=== PATIENT | male | born 1950 | race American Indian/Alaskan Native ===

== ENCOUNTER 2016-11-15 17:34 | Emergency (ER) | payer MEDICARE, OTHER ==
[2016-11-15 17:51] VITALS: BP 156/87
[2016-11-15 18:39] LABS: Basophils % (Auto) 0.8 % (0.0-1.8); Eosinophils % (Auto) 5.4 % (0.0-4.3); Hematocrit 44.6 % (35.5-45.6); Hemoglobin 14.7 gm/dl (11.8-15.2); Mean Corpuscular HGB Conc 33 % (32-34); Mean Corpuscular Hemoglobin 30 pg (28-32); Mean Corpuscular Volume 92 fl (84-94); Platelet Count 251 K/mm3 (140-440); Red Blood Count 4.87 M/mm3 (3.65-5.03); Red Cell Distribution Width 13.7 % (13.2-15.2); White Blood Count 9.3 K/mm3 (4.5-11.0)
[2016-11-15 18:51] LABS: Anion Gap 20 mmol/L; BUN/Creatinine Ratio 10.76; Blood Urea Nitrogen 14 mg/dL (9-20); Calcium 9.6 mg/dL (8.4-10.2); Carbon Dioxide 26 mmol/L (22-30); Chloride 102.8 mmol/L (98-107); Glucose 117 mg/dL (75-100); Potassium 4.2 mmol/L (3.6-5.0); Sodium 145 mmol/L (137-145)
--- NOTE | 2016-11-16 07:45 | ED Elopement Review ---
ED Pt Elopement review - Results review Lab results: Laboratory Tests 11/15/16 11/15/16 11/15/16 18:18 18:18 20:14 WBC 9.3 RBC 4.87 Hgb 14.7 Hct 44.6 MCV 92 MCH 30 MCHC 33 RDW 13.7 Plt Count 251 Lymph % (Auto) 28.5 [place] % (Auto) 8.0 H Eos % (Auto) 5.4 H Baso % (Auto) 0.8 Lymph # 2.6 [place] # 0.7 Eos # 0.5 H Baso # 0.1 Seg Neutrophils % 57.3 Seg Neutrophils # 5.3 Sodium 145 Potassium 4.2 Chloride 102.8 Carbon Dioxide 26 Anion Gap 20 BUN 14 Creatinine 1.3 Estimated GFR > 60 BUN/Creatinine Ratio 10.76 Glucose 117 H Calcium 9.6 Troponin T < 0.010 < 0.010 Triglycerides Cholesterol LDL Cholesterol Direct HDL Cholesterol Cholesterol/HDL Ratio 11/16/16 01:32 WBC RBC Hgb Hct MCV MCH MCHC RDW Plt Count Lymph % (Auto) [place] % (Auto) Eos % (Auto) Baso % (Auto) Lymph # [place] # Eos # Baso # Seg Neutrophils % Seg Neutrophils # Sodium Potassium Chloride Carbon Dioxide Anion Gap BUN Creatinine Estimated GFR BUN/Creatinine Ratio Glucose Calcium Troponin T 0.071 H D Triglycerides 237 H Cholesterol 232 H LDL Cholesterol Direct 133 H HDL Cholesterol 52 Cholesterol/HDL Ratio 4.46 - Call Back decision Pt Call Back Decision: No action required (3rd trop increased. needs to come back for admission and card wkup)
== END 2016-11-16 03:28 | disposition left against medical advice (07) ==
LOC: ED 17:34
DX: R07.89 Other chest pain (principal); R06.02 Shortness of breath; E11.9 Type 2 diabetes mellitus without complications; I10 Essential (primary) hypertension; F17.200 Nicotine dependence, unspecified, uncomplicated; Z88.6 Allergy status to analgesic agent; Z53.21 Procedure and treatment not carried out due to patient leaving prior to being seen by health care provider
CPT/HCPCS: 36415; 80048; 80061; 84484; 85025; 93005; 93010

== ENCOUNTER 2021-04-03 16:30 | Emergency (ER) | payer MEDICARE, OTHER ==
[2021-04-03 17:40] VITALS: BP 147/85
== END 2021-04-03 18:08 | disposition left against medical advice (07) ==
LOC: ED 16:30
DX: R50.9 Fever, unspecified (principal); Z53.21 Procedure and treatment not carried out due to patient leaving prior to being seen by health care provider